=== PATIENT | male | born 2005 | race Caucasian/White ===

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

== ENCOUNTER → 2025-07-08 13:51 | Outpatient (REF) | payer BC, SELFPAY | LOC: HWRAD 13:51 | PROVIDERS: ATTENDING PHYSICIAN Family Medicine | DX: S09.90XA Unspecified injury of head, initial encounter (principal) | CPT/HCPCS: 70450 ==